=== PATIENT | male | born 1985 | race Two or more races ===

== ENCOUNTER 2019-07-25 14:54 | Emergency (ER) | payer SELFPAY ==
[~2019-07-25] VITALS: Ht 154.9 cm; Wt 67.1 kg
[2019-07-25 15:12] VITALS: BP 114/69
[2019-07-25] MEDS ORDERED: SODIUM CHLORIDE FLUSH 10ML SYR IVF ONE (15:30)
--- NOTE | 2019-07-25 15:37 | NUR ---
PT STATES HE DEVELOPED SLURRED SPEECH AND R HAND WEAKNESS APPROX 6 DAYS AGO. PT DENIES HINTON/VISION CHANGES. 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 NO OTHER FOCAL NEURAL DEFICITS NOTED AT THIS TIME. PT NOTED TO WALK TO RM WITH STEADY GAIT PT TO CARD MONITOR, BP, CONT PULSE OX
[2019-07-25 15:51] LABS: BASOPHILS # (AUTO) 0.01 x10^3/uL (0-0.1); BASOPHILS % (AUTO) 0 % (0-1); EOSINOPHILS # (AUTO) 0.27 x10^3/uL (0-0.4); EOSINOPHILS % (AUTO) 3 % (1-7); LYMPHOCYTES # (AUTO) 2.61 x10^3/uL (1-3.4); LYMPHOCYTES % (AUTO) 30 % (22-44); MD NO; MEAN CORPUSCULAR HEMOGLOBIN 30.3 pg (27.5-34.5); MEAN CORPUSCULAR HGB CONC 33.8 g/dL (33.2-36.2); MEAN CORPUSCULAR VOLUME 89.8 fL (81-97); MEAN PLATELET VOLUME 9.5 fL (7.4-10.4); MONOCYTES # (AUTO) 0.84 x10^3/uL (0.2-0.8); MONOCYTES % (AUTO) 10 % (2-9); NEUTROPHILS # (AUTO) 4.89 x10^3/uL (1.8-6.8); NEUTROPHILS % (AUTO) 57 % (42-75); PLATELET COUNT 212 x10^3/uL (130-400); RED BLOOD COUNT 5.48 x10^6/uL (4.38-5.82); RED CELL DISTRIBUTION WIDTH 13.6 % (9.4-14.8)
[2019-07-25 16:04] LABS: ALANINE AMINOTRANSFERASE 108 U/L (12-78); ALBUMIN 3.4 g/dL (3.4-5.0); ANION GAP 6 mmol/L (5-15); CALCIUM 8.4 mg/dL (8.5-10.1); CHLORIDE 109 mmol/L (98-107); SALICYLATE LEVEL 2.3 mg/dL (2.8-20.0)
[2019-07-25 16:07] LABS: ALKALINE PHOSPHATASE 79 U/L (45-117); BILIRUBIN,TOTAL 0.2 mg/dL (0.2-1.0); TOTAL PROTEIN 6.9 g/dL (6.4-8.2)
== END 2019-07-25 16:53 | disposition left against medical advice (07) ==
LOC: ED 16:40
DX: R47.81 Slurred speech (principal); F17.210 Nicotine dependence, cigarettes, uncomplicated; R00.0 Tachycardia, unspecified
CPT/HCPCS: 36415; 80053; 80307; 85025; 93005; 99284